=== PATIENT | male | born 1995 | race African-American/Black ===

== ENCOUNTER 2018-10-21 02:00 | Emergency (ER) | payer OTHER ==
--- NOTE | 2018-10-21 02:09 | NUR ---
CALLED FOR TRIAGE, NO ANSWER.
--- NOTE | 2018-10-21 02:21 | NUR ---
2nd call for pt for triage, no response fr DIANDRA.
== END 2018-10-21 02:53 | disposition left against medical advice (07) ==
LOC: ER 02:06
DX: Z53.21 Procedure and treatment not carried out due to patient leaving prior to being seen by health care provider (principal)

== ENCOUNTER 2019-06-07 15:12 | Emergency (ER) | payer OTHER ==
[~2019-06-07] VITALS: Ht 185.4 cm; Wt 74.8 kg
[2019-06-07 15:35] VITALS: BP 121/74
== END 2019-06-07 15:54 | disposition home or self-care (01) ==
LOC: ER 15:13
DX: J06.9 Acute upper respiratory infection, unspecified (principal); F17.210 Nicotine dependence, cigarettes, uncomplicated; F10.10 Alcohol abuse, uncomplicated; Y90.9 Presence of alcohol in blood, level not specified; Z88.6 Allergy status to analgesic agent